=== PATIENT | female | born 1995 | race Caucasian/White ===

== ENCOUNTER → 2021-04-02 03:52 | Observation (INO) | END | disposition home or self-care (01) | LOC: 1NENULAB | PROVIDERS: ADMIT Advanced Practice Midwife; ATTEND Advanced Practice Midwife ==

== ENCOUNTER 2021-04-02 08:03 | Inpatient (IN) ==
[2021-04-02] MEDS ORDERED: Famotidine 20 MG/2 ML VIAL IVP PRN (08:22)
[2021-04-02] MEDS ORDERED: Naloxone 0.4 MG/ML INJ IVP PRN (08:22)
[2021-04-02] MEDS ORDERED: Metoclopramide 10 MG/2 ML VIAL IVP PRN (08:22)
[2021-04-02] MEDS ORDERED: Lidocaine 1% 20 ML MDV INFILT PRN (08:22)
[2021-04-02] MEDS ORDERED: *HR* Nalbuphine 10 MG/ML AMPUL IV PRN (08:22)
[2021-04-02] MEDS ORDERED: EPHEDrine 50 MG/ML VIAL IVP PRN (08:23)
[2021-04-02] MEDS ORDERED: Ringers Solution, Lactated 1,000 ML ONE (08:27)
[2021-04-02] MEDS ORDERED: *HR* Nalbuphine 10 MG/ML AMPUL ONE (08:28)
[2021-04-02] MEDS: Ringers Solution, Lactated 1,000 ML IVC SCH ×2 (08:34→09:34)
[2021-04-02 08:43] LABS: Basophils # 0.1 K/mcL (0.0-0.2); Basophils % 0.3 %; Eosinophils % 0.1 %; Hematocrit 37.2 % (35.3-44.9); Hemoglobin 12.2 g/dL (11.5-15.4); Immature Granulocytes % 0.9 % (0-4); Mean Corpuscular HGB Conc 32.8 g/dL (31.6-35.5); Mean Corpuscular Hemoglobin 27.1 pg (28.0-33.3); Mean Corpuscular Volume 82.7 fL (83.0-100.0); Mean Platelet Volume 11.2 fL (9.4-12.4); Monocytes # 0.8 K/mcL (0.0-1.3); Monocytes % 4.3 %; Neutrophils # 17.5 K/mcL (1.6-8.9); Platelet Count 170 K/mcL (140-400); Red Cell Distribution Width 13.2 % (11.5-14.5); Segmented Neutrophils % 89.4 %; White Blood Count 19.5 K/mcL (4.3-11.1)
[2021-04-02] MEDS: Epidural Premix (fent/bupiv) 110 ML EP SCH ×3 (09:16→14:37)
[2021-04-02 11:14] LABS: Amphetamine Screen,Urine Negative ng/mL (Cutoff=1000); Barbiturate Screen,Urine Negative ng/mL (Cutoff=200); Benzodiazepines Screen,Urine Negative ng/mL (Cutoff=200); Cannabinoid Screen,Urine Negative ng/mL (Cutoff = 50); Cocaine Screen,Urine Negative ng/mL (Cutoff= 300); Opiate Screen,Urine Negative ng/mL (Cutoff=300); Phencyclidine Screen,Urine Negative ng/mL (Cutoff=25)
[2021-04-02] MEDS: Ondansetron 4 MG/2 ML VIAL IVP PRN ×2 (12:04→13:55)
[2021-04-02 14:52] LABS: Alanine Aminotransferase 10 Units/L (7-52); Albumin 3.2 g/dL (3.5-5.7); Albumin/Globulin Ratio 1.3 (1.1-2.2); Alkaline Phosphatase 116 Units/L (34-104); Aspartate Amino Transferase 17 Units/L (13-39); BUN/Creatinine Ratio 15 (6-26); Bilirubin,Total 0.5 mg/dL (0.3-1.0); Blood Urea Nitrogen 7 mg/dL (6-20); Calcium 8.3 mg/dL (8.6-10.3); Carbon Dioxide 21 mEq/L (23-29); Chloride 102 mEq/L (98-107); Globulin 2.4 g/dL (2.4-3.5); Glucose 95 mg/dL (70-105); Osmolality,Calculated 272 (280-300); Potassium 4.3 mEq/L (3.5-5.1); Sodium 132 mEq/L (136-145); Total Protein 5.6 g/dL (6.4-8.9); eGFR For African Americans > 60 (> 60); eGFR For Non-African Americans > 60 (> 60)
[2021-04-02] MEDS ORDERED: Rho Immune Globulin 1,500 UNIT SYRINGE IM PRN (18:21)
[2021-04-02] MEDS ORDERED: Lanolin 7 G OINT...G. TP PRN (18:21)
[2021-04-02] MEDS ORDERED: Measles/Mumps/Rubella Vacc 0.5 ML VIAL SQ PRN (18:21)
[2021-04-02] MEDS ORDERED: Sennosides 8.6 MG TABLET PO PRN (18:21)
[2021-04-02] MEDS ORDERED: Oxytocin 20 units/ LR 1000 mL 20 UNIT/1,000 ML BAG IVC SCH (18:21)
[2021-04-02] MEDS ORDERED: Benzocaine/Menthol 56 GM AEROSOL SPRAY TP PRN (18:21)
[2021-04-02] MEDS ORDERED: Oxytocin 20 units/ LR 1000 mL 20 UNIT/1,000 ML BAG IVC ONE (18:21)
[2021-04-02] MEDS ORDERED: Perflutren Lipid Microsphere 1.3 ML in 0.9 % Sodium Chloride 8.7 ML IVP PRN (19:52)
[2021-04-02] MEDS: Ibuprofen 600 MG TABLET PO SCH (19:58)
[2021-04-02 20:55] LABS: Troponin I < 0.03 ng/mL (< 0.04)
[2021-04-03] MEDS: Ibuprofen 600 MG TABLET PO SCH ×2 (04:45→11:20)
[2021-04-03 07:07] LABS: Basophils # 0.1 K/mcL (0.0-0.2); Basophils % 0.3 %; Eosinophils # 0.1 K/mcL (0.0-0.6); Eosinophils % 0.3 %; Hematocrit 30.1 % (35.3-44.9); Immature Granulocytes % 0.9 % (0-4); Lymphocytes # 1.8 K/mcL (0.6-4.6); Lymphocytes % 9.2 %; Mean Corpuscular HGB Conc 33.2 g/dL (31.6-35.5); Mean Corpuscular Hemoglobin 28.1 pg (28.0-33.3); Mean Corpuscular Volume 84.6 fL (83.0-100.0); Mean Platelet Volume 11.2 fL (9.4-12.4); Monocytes # 1.6 K/mcL (0.0-1.3); Monocytes % 8.1 %; Neutrophils # 15.8 K/mcL (1.6-8.9); Platelet Count 145 K/mcL (140-400); Red Blood Count 3.56 M/mcL (3.82-4.97); Red Cell Distribution Width 13.6 % (11.5-14.5); Segmented Neutrophils % 81.2 %; White Blood Count 19.4 K/mcL (4.3-11.1)
[2021-04-03] MEDS ORDERED: Prenatal Vit/FA 1 EACH TABLET PO SCH (09:00)
[2021-04-03] MEDS ORDERED: NON-FORMULARY MEDICATION 1 EACH EACH (Prenatal Vitamin Tablet 1 TAB) PO SCH (09:00)
[2021-04-03] MEDS: Acetaminophen 325 MG TABLET PO SCH ×2 (11:22→13:34)
[2021-04-03 14:48] VITALS: BP 102/57; PULSE 78; TEMP 98.1; O2SAT 99
== END 2021-04-03 18:57 | disposition home or self-care (01) | DRG 807 ==
LOC: 1NENULAB → 1NENUOBS 19:26
PROVIDERS: ADMIT Obstetrics & Gynecology; ATTEND Obstetrics & Gynecology

== ENCOUNTER 2022-06-14 07:59 | Inpatient (IN) ==
[2022-06-14] MEDS ORDERED: Famotidine 20 MG/2 ML VIAL IVP PRN (08:24)
[2022-06-14] MEDS ORDERED: Ondansetron 4 MG/2 ML VIAL IVP PRN ×2 (08:24→11:39)
[2022-06-14] MEDS ORDERED: Lidocaine -MPF 1% 5 ML AMPUL INFILT PRN (08:24)
[2022-06-14] MEDS ORDERED: Naloxone 0.4 MG/ML INJ IVP PRN ×2 (08:24→11:39)
[2022-06-14] MEDS ORDERED: Metoclopramide 10 MG/2 ML VIAL IVP PRN (08:24)
[2022-06-14] MEDS ORDERED: miSOPROStoL 25 MCG TABLET PO PRN (08:24)
[2022-06-14] MEDS ORDERED: *HR* Nalbuphine 10 MG/ML AMPUL IV PRN (08:24)
[2022-06-14] MEDS ORDERED: Oxytocin 30 UNIT/503 ML BAG IVC SCH ×2 (08:30→23:08)
[2022-06-14] MEDS: Ringers Solution, Lactated 1,000 ML IVC SCH ×3 (09:03→15:00)
[2022-06-14 09:31] LABS: Basophils % 0.2 %; Eosinophils # 0.1 K/mcL (0.0-0.6); Eosinophils % 0.8 %; Hematocrit 34.7 % (35.3-44.9); Hemoglobin 10.8 g/dL (11.5-15.4); Immature Granulocytes % 1.1 % (0-4); Lymphocytes # 1.5 K/mcL (0.6-4.6); Lymphocytes % 12.3 %; Mean Corpuscular HGB Conc 31.1 g/dL (31.6-35.5); Mean Corpuscular Hemoglobin 24.7 pg (28.0-33.3); Mean Corpuscular Volume 79.2 fL (83.0-100.0); Mean Platelet Volume 10.3 fL (9.4-12.4); Monocytes # 0.8 K/mcL (0.0-1.3); Monocytes % 6.6 %; Neutrophils # 9.3 K/mcL (1.6-8.9); Platelet Count 212 K/mcL (140-400); Red Blood Count 4.38 M/mcL (3.82-4.97); Red Cell Distribution Width 17.5 % (11.5-14.5); White Blood Count 11.8 K/mcL (4.3-11.1)
[2022-06-14 09:40] LABS: Amphetamine Screen,Urine Negative ng/mL (Cutoff=1000); Barbiturate Screen,Urine Negative ng/mL (Cutoff=200); Benzodiazepines Screen,Urine Negative ng/mL (Cutoff=200); Cannabinoid Screen,Urine Negative ng/mL (Cutoff = 50); Cocaine Screen,Urine Negative ng/mL (Cutoff= 300); Opiate Screen,Urine Negative ng/mL (Cutoff=300); Phencyclidine Screen,Urine Negative ng/mL (Cutoff=25)
[2022-06-14] MEDS ORDERED: Ropivacaine/PF 0.2% 20 ML VIAL EP ONE (11:39)
[2022-06-14] MEDS ORDERED: EPHEDrine sulfate 50 MG/10 ML VIAL IVP PRN (11:39)
[2022-06-14] MEDS ORDERED: Epidural Premix (fent/bupiv) 110 ML EP SCH (11:45)
[2022-06-14] MEDS ORDERED: Ropivacaine/PF 0.2% 20 ML VIAL ONE (14:18)
[2022-06-14] MEDS ORDERED: OXYTOCIN/RINGERS LACTATE 10 UNIT/166.6 ML BAG IVC ONE (23:08)
[2022-06-14] MEDS ORDERED: Lanolin 7 G OINT...G. TP PRN (23:08)
[2022-06-14] MEDS ORDERED: Ondansetron ODT 4 MG TAB.RAPDIS SL PRN (23:08)
[2022-06-14] MEDS ORDERED: Rho Immune Globulin 1,500 UNIT SYRINGE IM PRN (23:08)
[2022-06-14] MEDS ORDERED: Benzocaine/Menthol 56 GM AEROSOL SPRAY TP PRN (23:08)
[2022-06-14] MEDS: Acetaminophen 325 MG TABLET PO SCH (23:24)
[2022-06-14] MEDS: Ibuprofen 600 MG TABLET PO SCH (23:24)
[2022-06-15] MEDS: Acetaminophen 325 MG TABLET PO SCH ×3 (02:01→17:32)
[2022-06-15 03:57] VITALS: O2SAT 98
[2022-06-15 04:12] LABS: Basophils % 0.3 %; Eosinophils # 0.1 K/mcL (0.0-0.6); Eosinophils % 0.4 %; Hematocrit 30.9 % (35.3-44.9); Hemoglobin 9.6 g/dL (11.5-15.4); Immature Granulocytes % 0.6 % (0-4); Lymphocytes # 1.6 K/mcL (0.6-4.6); Lymphocytes % 9.9 %; Mean Corpuscular HGB Conc 31.1 g/dL (31.6-35.5); Mean Corpuscular Hemoglobin 24.6 pg (28.0-33.3); Mean Corpuscular Volume 79.2 fL (83.0-100.0); Mean Platelet Volume 10.6 fL (9.4-12.4); Monocytes # 1.4 K/mcL (0.0-1.3); Monocytes % 8.9 %; Neutrophils # 12.8 K/mcL (1.6-8.9); Platelet Count 171 K/mcL (140-400); Red Cell Distribution Width 17.6 % (11.5-14.5); Segmented Neutrophils % 79.9 %
[2022-06-15] MEDS: Ibuprofen 600 MG TABLET PO SCH ×3 (07:11→20:01)
[2022-06-15] MEDS ORDERED: Prenatal Vit/FA 1 EACH TABLET PO SCH (09:00)
[2022-06-15 20:48] VITALS: BP 118/62; PULSE 65; TEMP 97.7
== END 2022-06-15 20:45 | disposition home or self-care (01) | DRG 807 ==
LOC: 1NENULAB 07:59 → 1NENUOBS 22:52
PROVIDERS: ADMIT Advanced Practice Midwife; ATTEND Advanced Practice Midwife